=== PATIENT | male | born 1950 | race Caucasian/White ===

== ENCOUNTER 2024-08-12 06:12 | Outpatient (CLI) | payer MEDICARE, BC ==
[2024-08-12] MEDS ORDERED: iohexol 300 MG/1 ML 50ml polymer ONE (06:37)
[2024-08-12] MEDS ORDERED: LIDOcaine 1%/PF 5ML 10 MG/ML VIAL ONE (06:37)
[2024-08-12] MEDS ORDERED: GADOTERATE MEGLUMINE 7.5 MMOL/15 ML VIAL IV ONE (06:37)
[2024-08-12] MEDS ORDERED: LIDOcaine 1% 30ml preserv. free vial ONE (06:37)
== END 2024-08-12 23:59 | disposition home or self-care (01) ==
LOC: RAD 06:12
PROVIDERS: ATTEND Pediatrics Sports Medicine
DX: M25.511 Pain in right shoulder (principal); M19.011 Primary osteoarthritis, right shoulder; M62.511 Muscle wasting and atrophy, not elsewhere classified, right shoulder; M75.101 Unspecified rotator cuff tear or rupture of right shoulder, not specified as traumatic
CPT/HCPCS: 23350; 73222; 77002; A9575; J2003; J3490; Q9967